=== PATIENT | male | born 1935 | race Caucasian/White ===

== ENCOUNTER 2021-01-27 20:01 | Inpatient (IN) ==
[2021-01-27 21:45] LABS: Basophils # 0.1 K/mcL (0.0-0.2); Basophils % 0.4 %; Hematocrit 47.1 % (37.5-50.1); Immature Granulocytes % 2.6 % (0-4); Lymphocytes # 0.3 K/mcL (0.6-4.6); Lymphocytes % 2.5 %; Mean Corpuscular HGB Conc 29.7 g/dL (31.6-35.5); Mean Corpuscular Hemoglobin 28.6 pg (28.0-33.3); Mean Corpuscular Volume 96.1 fL (83.0-100.0); Mean Platelet Volume 10.6 fL (9.4-12.4); Monocytes # 0.3 K/mcL (0.0-1.3); Monocytes % 2.4 %; Neutrophils # 12.5 K/mcL (1.6-8.9); Platelet Count 166 K/mcL (140-400); Red Cell Distribution Width 16.3 % (11.5-14.5); Segmented Neutrophils % 92.1 %; White Blood Count 13.5 K/mcL (4.3-11.1)
[2021-01-27 22:15] LABS: Troponin I 0.08 ng/mL (< 0.04)
[2021-01-27 22:21] LABS: Calcium 9.1 mg/dL (8.6-10.3); Potassium 4.7 mEq/L (3.5-5.1)
[2021-01-27] MEDS ORDERED: Furosemide 40 MG/4 ML VIAL IVP ONE (22:57)
[2021-01-27] MEDS ORDERED: Aspirin 81 MG TAB.CHEW PO ONE (23:13)
[2021-01-27] MEDS ORDERED: 0.9 % Sodium Chloride 500 ML IVC ONE (23:27)
[2021-01-27] MEDS ORDERED: levoFLOXacin 750 MG/150 ML 750 MG/150 ML BAG IVPB ONE (23:27)
[2021-01-27] MEDS ORDERED: Ipratropium/Albuterol Neb 3 ML IH ONE (23:27)
[2021-01-28] MEDS ORDERED: Acetaminophen 325 MG TABLET PO PRN (00:30)
[2021-01-28] MEDS ORDERED: Ondansetron 4 MG/2 ML VIAL IVP PRN (00:30)
[2021-01-28] MEDS ORDERED: *HR* Promethazine 25 MG/ML VIAL IM PRN (00:30)
[2021-01-28] MEDS ORDERED: Melatonin 3 MG TABLET PO PRN (00:30)
[2021-01-28] MEDS ORDERED: Naloxone 0.4 MG/ML INJ IVP PRN (00:30)
[2021-01-28] MEDS: Dexmedetomidine HCl 400 MCG/100 ML MLS IVC SCH ×3 (05:31→19:50)
[2021-01-28 05:50] LABS: Basophils % 0.3 %; Eosinophils % 0.2 %; Hematocrit 47.3 % (37.5-50.1); Immature Granulocytes % 2.5 % (0-4); Lymphocytes # 0.5 K/mcL (0.6-4.6); Lymphocytes % 3.1 %; Mean Corpuscular HGB Conc 29.6 g/dL (31.6-35.5); Mean Corpuscular Hemoglobin 28.9 pg (28.0-33.3); Mean Corpuscular Volume 97.7 fL (83.0-100.0); Mean Platelet Volume 10.9 fL (9.4-12.4); Monocytes # 0.3 K/mcL (0.0-1.3); Monocytes % 2.3 %; Neutrophils # 13.5 K/mcL (1.6-8.9); Nucleated Red Blood Cells 0.1 /100 WBC (0); Platelet Count 165 K/mcL (140-400); Red Blood Count 4.84 M/mcL (4.19-5.50); Red Cell Distribution Width 16.3 % (11.5-14.5); Segmented Neutrophils % 91.6 %; White Blood Count 14.7 K/mcL (4.3-11.1)
[2021-01-28 05:59] LABS: Protein/Creatinine Ratio,Urine 0.44 mg/mg (0.00-0.20); Sodium, Urine 40.7 mEq/L
[2021-01-28 05:59] LABS: Bilirubin,Urine Negative (Negative); Blood,Urine Small (Negative); Clarity,Urine Clear (Clear); Color,Urine Light-Yellow (Yellow); Glucose,Urine (UA) Normal (Normal); Hyaline Casts,Urine Moderate per lpf (None Seen); Ketones,Urine Negative (Negative); Leukocyte Esterase,Urine Negative (Negative); Nitrite,Urine Negative (Negative); PH,Urine 5.5 pH Units (5.0-8.0); Protein,Urine Trace mg/dL (Neg-Trace); Renal Epithelial Cells,Urine Few per hpf (None-Few); Specific Gravity,Urine 1.015 (1.010-1.025); Transitional Epi Cells,Urine Few per hpf (None-Few); Urobilinogen,Urine Normal (Normal); WBC,Urine 0-3 per hpf (0-3)
[2021-01-28 06:05] LABS: INR 1.2; Prothrombin Time 13.7 Seconds (9.4-12.1)
[2021-01-28 06:08] LABS: Albumin 3.3 g/dL (3.5-5.7); Albumin/Globulin Ratio 1.1 (1.1-2.2); Bilirubin,Direct 0.4 mg/dL (0.0-0.2); Bilirubin,Indirect 0.4 mg/dL (0.0-1.0); Bilirubin,Total 0.8 mg/dL (0.3-1.0); Globulin 3.1 g/dL (2.4-3.5); Total Protein 6.4 g/dL (6.4-8.9)
[2021-01-28 06:11] LABS: Albumin 3.3 g/dL (3.5-5.7); Albumin/Globulin Ratio 1.1 (1.1-2.2); Bilirubin,Total 0.8 mg/dL (0.3-1.0); Globulin 2.9 g/dL (2.4-3.5); Magnesium 2.4 mg/dL (1.6-2.6); Potassium 4.4 mEq/L (3.5-5.1); Total Protein 6.2 g/dL (6.4-8.9)
[2021-01-28 06:19] LABS: Platelet Estimate Normal (Normal)
[2021-01-28 06:24] LABS: Influenza A PCR Negative (Negative); Influenza B PCR Negative (Negative); Resp. Syncytial Virus PCR Negative (Negative)
[2021-01-28 06:25] LABS: SARS-CoV-2 by PCR (In House) Positive (Negative)
[2021-01-28] MEDS: Azithromycin 500 MG in 0.9 % Sodium Chloride 250 ML IVPB SCH (08:19)
[2021-01-28] MEDS: Cefepime HCl 2,000 MG in Water for inj. (sterile) 10 ML IVP SCH ×3 (08:20→23:36)
[2021-01-28] MEDS: Aspirin Enteric Coated 81 MG Tablet PO SCH (08:20)
[2021-01-28] MEDS ORDERED: Dexamethasone Sodium Phos/PF 10 MG/ML VIAL IVP SCH (09:00)
[2021-01-28] MEDS: *HR* Metoprolol 5 MG/5 ML VIAL IVP SCH ×3 (14:38→23:37)
[2021-01-28] MEDS ORDERED: Dexamethasone Sodium Phos/PF 10 MG/ML VIAL IVP ONE (15:18)
[2021-01-28] MEDS ORDERED: 0.9 % Sodium Chloride 250 ML ONE (23:50)
[2021-01-29 01:39] LABS: Mean Corpuscular Hemoglobin 28.1 pg (28.0-33.3)
[2021-01-29 01:41] LABS: Basophils % 0.3 %; Hematocrit 45.1 % (37.5-50.1); Immature Granulocytes % 2.5 % (0-4); Lymphocytes # 0.4 K/mcL (0.6-4.6); Lymphocytes % 3.5 %; Mean Corpuscular HGB Conc 28.8 g/dL (31.6-35.5); Mean Corpuscular Volume 97.6 fL (83.0-100.0); Mean Platelet Volume 10.6 fL (9.4-12.4); Monocytes # 0.4 K/mcL (0.0-1.3); Nucleated Red Blood Cells 0.2 /100 WBC (0); Platelet Count 154 K/mcL (140-400); Red Blood Count 4.62 M/mcL (4.19-5.50); Red Cell Distribution Width 16.2 % (11.5-14.5); Segmented Neutrophils % 90.7 %; White Blood Count 12.2 K/mcL (4.3-11.1)
[2021-01-29 01:45] LABS: Neutrophils # 11.1 K/mcL (1.6-8.9)
[2021-01-29 02:00] LABS: Albumin 2.9 g/dL (3.5-5.7); Bilirubin,Total 0.7 mg/dL (0.3-1.0); Calcium 9.2 mg/dL (8.6-10.3); Potassium 5.2 mEq/L (3.5-5.1); Total Protein 5.9 g/dL (6.4-8.9)
[2021-01-29 02:05] LABS: Platelet Estimate Normal (Normal)
[2021-01-29] MEDS: Dexmedetomidine HCl 400 MCG/100 ML MLS IVC SCH ×3 (02:40→17:21)
[2021-01-29] MEDS: Azithromycin 500 MG in 0.9 % Sodium Chloride 250 ML IVPB SCH (06:07)
[2021-01-29] MEDS: *HR* Metoprolol 5 MG/5 ML VIAL IVP SCH (06:07)
[2021-01-29] MEDS: Cefepime HCl 2,000 MG in Water for inj. (sterile) 10 ML IVP SCH (07:49)
[2021-01-29] MEDS: Aspirin Enteric Coated 81 MG Tablet PO SCH (07:50)
[2021-01-29] MEDS: Dexamethasone Sodium Phos/PF 10 MG/ML VIAL IVP SCH (07:50)
[2021-01-29] MEDS ORDERED: Furosemide 40 MG/4 ML VIAL IVP ONE (09:39)
[2021-01-29] MEDS: Pantoprazole 40 MG VIAL IVP SCH (11:45)
[2021-01-29] MEDS ORDERED: *HR* Metoprolol 5 MG/5 ML VIAL IVP SCH (12:00)
[2021-01-29] MEDS: Cefepime HCl 2,000 MG in Water for inj. (sterile) 20 ML IVP SCH ×2 (17:21→17:26)
[2021-01-29] MEDS: Lactulose Oral Soln 20 GM/30 ML UDC PO SCH (20:41)
[2021-01-29] MEDS: risperiDONE 0.25 MG TABLET PO SCH (20:42)
[2021-01-30] MEDS: Dexmedetomidine HCl 400 MCG/100 ML MLS IVC SCH ×3 (01:19→15:40)
[2021-01-30] MEDS: Cefepime HCl 2,000 MG in Water for inj. (sterile) 20 ML IVP SCH ×2 (06:05→17:23)
[2021-01-30] MEDS: Azithromycin 500 MG in 0.9 % Sodium Chloride 250 ML IVPB SCH (06:29)
[2021-01-30] MEDS: Pantoprazole 40 MG VIAL IVP SCH (06:38)
[2021-01-30] MEDS: Aspirin Enteric Coated 81 MG Tablet PO SCH (06:38)
[2021-01-30] MEDS ORDERED: *HR* Enoxaparin 40 MG/0.4 ML SYRINGE SQ SCH (07:00)
[2021-01-30 09:19] LABS: Basophils # 0.1 K/mcL (0.0-0.2); Basophils % 0.4 %; Eosinophils % 0.2 %; Hemoglobin 13.1 g/dL (12.9-16.9); Immature Granulocytes % 2.5 % (0-4); Lymphocytes # 0.4 K/mcL (0.6-4.6); Lymphocytes % 3.2 %; Mean Corpuscular HGB Conc 29.1 g/dL (31.6-35.5); Mean Corpuscular Hemoglobin 28.1 pg (28.0-33.3); Mean Corpuscular Volume 96.4 fL (83.0-100.0); Mean Platelet Volume 10.8 fL (9.4-12.4); Monocytes # 0.6 K/mcL (0.0-1.3); Monocytes % 4.8 %; Neutrophils # 11.2 K/mcL (1.6-8.9); Platelet Count 161 K/mcL (140-400); Red Blood Count 4.67 M/mcL (4.19-5.50); Red Cell Distribution Width 16.4 % (11.5-14.5); Segmented Neutrophils % 88.9 %; White Blood Count 12.6 K/mcL (4.3-11.1)
[2021-01-30 09:27] LABS: Albumin 3.1 g/dL (3.5-5.7); Albumin/Globulin Ratio 1.1 (1.1-2.2); Bilirubin,Total 0.8 mg/dL (0.3-1.0); Calcium 9.3 mg/dL (8.6-10.3); Globulin 2.8 g/dL (2.4-3.5); Potassium 4.9 mEq/L (3.5-5.1); Total Protein 5.9 g/dL (6.4-8.9)
[2021-01-30] MEDS: Lactulose Oral Soln 20 GM/30 ML UDC PO SCH ×2 (10:00→23:18)
[2021-01-30] MEDS: Cholecalciferol (D-3) 1,000 UNIT (25MCG) TABLET PO SCH (10:01)
[2021-01-30] MEDS: Isosorbide MONOnitrate (24 HR) 60 MG TAB.ER.24H PO SCH (10:01)
[2021-01-30] MEDS: Dexamethasone Sodium Phos/PF 10 MG/ML VIAL IVP SCH (10:02)
[2021-01-30 10:15] LABS: D-Dimer 1355 ng/mLFEU (0-500)
[2021-01-30 10:21] LABS: Fibrinogen > 1000 mg/dL (169-393)
[2021-01-30] MEDS ORDERED: Isovue-370 500 ML BOTTLE IVP ONE (11:16)
[2021-01-30] MEDS ORDERED: *HR* Enoxaparin 60 MG/0.6 ML SYRINGE SQ ONE (11:30)
[2021-01-30] MEDS ORDERED: 0.9 % Sodium Chloride 1,000 ML IVC SCH (11:30)
[2021-01-30] MEDS: risperiDONE 0.25 MG TABLET PO SCH (22:35)
[2021-01-30] MEDS: *HR* Enoxaparin 100 MG/ML SYRINGE SQ SCH (22:45)
[2021-01-31] MEDS: Dexmedetomidine HCl 400 MCG/100 ML MLS IVC SCH ×3 (00:16→16:02)
[2021-01-31 06:18] LABS: Basophils % 0.3 %; Hematocrit 43.1 % (37.5-50.1); Hemoglobin 12.6 g/dL (12.9-16.9); Immature Granulocytes % 1.9 % (0-4); Lymphocytes # 0.2 K/mcL (0.6-4.6); Lymphocytes % 2.1 %; Mean Corpuscular HGB Conc 29.2 g/dL (31.6-35.5); Mean Corpuscular Hemoglobin 28.3 pg (28.0-33.3); Mean Corpuscular Volume 96.6 fL (83.0-100.0); Mean Platelet Volume 10.4 fL (9.4-12.4); Monocytes # 0.6 K/mcL (0.0-1.3); Monocytes % 5.6 %; Neutrophils # 9.4 K/mcL (1.6-8.9); Nucleated Red Blood Cells 1.2 /100 WBC (0); Platelet Count 156 K/mcL (140-400); Red Blood Count 4.46 M/mcL (4.19-5.50); Red Cell Distribution Width 16.1 % (11.5-14.5); Segmented Neutrophils % 90.1 %; White Blood Count 10.4 K/mcL (4.3-11.1)
[2021-01-31 06:41] LABS: Albumin 2.9 g/dL (3.5-5.7); Albumin/Globulin Ratio 1.1 (1.1-2.2); Bilirubin,Total 0.6 mg/dL (0.3-1.0); Calcium 9.1 mg/dL (8.6-10.3); Globulin 2.6 g/dL (2.4-3.5); Potassium 5.3 mEq/L (3.5-5.1); Total Protein 5.5 g/dL (6.4-8.9)
[2021-01-31] MEDS: Cefepime HCl 2,000 MG in Water for inj. (sterile) 20 ML IVP SCH (06:47)
[2021-01-31] MEDS: Azithromycin 500 MG in 0.9 % Sodium Chloride 250 ML IVPB SCH (08:55)
[2021-01-31] MEDS: *HR* Enoxaparin 100 MG/ML SYRINGE SQ SCH ×2 (08:55→23:12)
[2021-01-31] MEDS: Pantoprazole 40 MG VIAL IVP SCH (08:56)
[2021-01-31] MEDS: Lactulose Oral Soln 20 GM/30 ML UDC PO SCH ×2 (13:21→22:50)
[2021-01-31] MEDS: Aspirin Enteric Coated 81 MG Tablet PO SCH (13:21)
[2021-01-31] MEDS: Isosorbide MONOnitrate (24 HR) 60 MG TAB.ER.24H PO SCH (13:21)
[2021-01-31] MEDS: Cholecalciferol (D-3) 1,000 UNIT (25MCG) TABLET PO SCH (13:22)
[2021-01-31] MEDS: Dexamethasone Sodium Phos/PF 10 MG/ML VIAL IVP SCH (13:23)
[2021-01-31] MEDS: Cefepime HCl 1,000 MG in Water for inj. (sterile) 20 ML IVP SCH (17:19)
[2021-01-31] MEDS: risperiDONE 0.25 MG TABLET PO SCH (22:51)
[2021-02-01] MEDS: Dexmedetomidine HCl 400 MCG/100 ML MLS IVC SCH ×4 (00:06→22:23)
[2021-02-01 02:17] LABS: Basophils # 0.1 K/mcL (0.0-0.2); Basophils % 0.7 %; Hematocrit 43.9 % (37.5-50.1); Hemoglobin 13.1 g/dL (12.9-16.9); Lymphocytes # 0.2 K/mcL (0.6-4.6); Mean Corpuscular HGB Conc 29.8 g/dL (31.6-35.5); Mean Corpuscular Hemoglobin 28.2 pg (28.0-33.3); Mean Corpuscular Volume 94.4 fL (83.0-100.0); Mean Platelet Volume 11.3 fL (9.4-12.4); Monocytes # 0.5 K/mcL (0.0-1.3); Monocytes % 5.4 %; Nucleated Red Blood Cells 0.7 /100 WBC (0); Platelet Count 148 K/mcL (140-400); Red Blood Count 4.65 M/mcL (4.19-5.50); Red Cell Distribution Width 15.9 % (11.5-14.5); Segmented Neutrophils % 87.9 %; White Blood Count 9.1 K/mcL (4.3-11.1)
[2021-02-01 02:36] LABS: Albumin 2.8 g/dL (3.5-5.7); Bilirubin,Total 0.6 mg/dL (0.3-1.0); Calcium 9.1 mg/dL (8.6-10.3); Globulin 2.9 g/dL (2.4-3.5); Potassium 5.5 mEq/L (3.5-5.1); Total Protein 5.7 g/dL (6.4-8.9)
[2021-02-01 02:38] LABS: Fibrinogen 705 mg/dL (169-393)
[2021-02-01 02:39] LABS: D-Dimer 870 ng/mLFEU (0-500)
[2021-02-01 02:42] LABS: C-Reactive Protein 90 mg/L (Less than 10); Lactate Dehydrogenase 295 Units/L (140-271)
[2021-02-01 02:53] LABS: Ferritin 1025 ng/mL (20-250)
[2021-02-01] MEDS: Cefepime HCl 1,000 MG in Water for inj. (sterile) 20 ML IVP SCH (05:03)
[2021-02-01] MEDS ORDERED: *HR* Metoprolol 5 MG/5 ML VIAL IVP ONE (09:25)
[2021-02-01] MEDS: Azithromycin 500 MG in 0.9 % Sodium Chloride 250 ML IVPB SCH (09:27)
[2021-02-01] MEDS: *HR* Enoxaparin 100 MG/ML SYRINGE SQ SCH ×2 (09:28→21:07)
[2021-02-01] MEDS: Pantoprazole 40 MG VIAL IVP SCH (09:28)
[2021-02-01] MEDS: Aspirin Enteric Coated 81 MG Tablet PO SCH (09:28)
[2021-02-01] MEDS: Cholecalciferol (D-3) 1,000 UNIT (25MCG) TABLET PO SCH (09:29)
[2021-02-01] MEDS: Dexamethasone Sodium Phos/PF 10 MG/ML VIAL IVP SCH (09:29)
[2021-02-01] MEDS: Lactulose Oral Soln 20 GM/30 ML UDC PO SCH ×2 (09:29→21:07)
[2021-02-01] MEDS: Isosorbide MONOnitrate (24 HR) 60 MG TAB.ER.24H PO SCH (09:29)
[2021-02-01] MEDS: *HR* Metoprolol 5 MG/5 ML VIAL IVP SCH ×2 (11:18→17:20)
[2021-02-01] MEDS: Cefepime HCl 2,000 MG in 0.9 % Sodium Chloride Mini Bag 100 ML IVPB SCH (17:21)
[2021-02-01] MEDS: risperiDONE 0.25 MG TABLET PO SCH (21:06)
[2021-02-02] MEDS: *HR* Metoprolol 5 MG/5 ML VIAL IVP SCH ×2 (00:58→05:31)
[2021-02-02] MEDS: Dexmedetomidine HCl 400 MCG/100 ML MLS IVC SCH ×2 (04:25→10:26)
[2021-02-02] MEDS: Cefepime HCl 2,000 MG in 0.9 % Sodium Chloride Mini Bag 100 ML IVPB SCH (05:31)
[2021-02-02 06:40] VITALS: TEMP 96.4
[2021-02-02] MEDS: Dexamethasone Sodium Phos/PF 10 MG/ML VIAL IVP SCH (09:38)
[2021-02-02] MEDS: Pantoprazole 40 MG VIAL IVP SCH (09:38)
[2021-02-02] MEDS: Lactulose Oral Soln 20 GM/30 ML UDC PO SCH (09:39)
[2021-02-02] MEDS: Aspirin Enteric Coated 81 MG Tablet PO SCH (09:40)
[2021-02-02] MEDS: Isosorbide MONOnitrate (24 HR) 60 MG TAB.ER.24H PO SCH (09:40)
[2021-02-02] MEDS: *HR* Enoxaparin 100 MG/ML SYRINGE SQ SCH (09:41)
[2021-02-02] MEDS: Cholecalciferol (D-3) 1,000 UNIT (25MCG) TABLET PO SCH (09:41)
[2021-02-02 09:52] VITALS: BP 144/81; PULSE 111; O2SAT 94
[2021-02-02] MEDS ORDERED: Morphine Sulfate 2 MG/ML SYRINGE IVP PRN ×2 (10:48→12:19)
[2021-02-02] MEDS ORDERED: Atropine 1% Opth Drops 100 DROP/5 ML BOTTLE SL PRN (10:51)
[2021-02-02] MEDS ORDERED: Haloperidol Lactate 5 MG/ML VIAL IVP PRN (10:52)
[2021-02-02] MEDS ORDERED: *HR* LORazepam 2 MG/ML VIAL IVP PRN (10:52)
== END 2021-02-02 14:05 | disposition expired | DRG 871 ==
LOC: EMEROOARM 20:01 → CDU 20:01 → SUATTDRO 01-28 00:27 → CDU 01-28 02:39 → 2NNU 01-28 11:03 → 3NENU 01-29 22:56
PROVIDERS: ADMIT Internal Medicine; ATTEND Family Medicine